=== PATIENT | male | born 1995 | race African-American/Black ===

== ENCOUNTER 2019-10-25 21:25 | Emergency (ER) | payer OTHER ==
[~2019-10-25] VITALS: Ht 175.3 cm; Wt 79.5 kg
[2019-10-25] MEDS ORDERED: KETOROLAC TROMETHAMINE 60 MG/2 ML VIAL IM ONE (22:45)
[2019-10-25 23:00] VITALS: BP 127/68
== END 2019-10-25 23:04 | disposition home or self-care (01) ==
LOC: EMS 21:25
DX: M25.562 Pain in left knee (principal)
CPT/HCPCS: 96372; 99283; J1885